=== PATIENT | male | born 1995 | race Native Hawaiian/Other Pacific Islander ===

== ENCOUNTER 2017-03-08 05:20 | Emergency (ER) | payer OTHER ==
[~2017-03-08] VITALS: Ht 190.5 cm; Wt 63.5 kg
[2017-03-08 05:47] VITALS: BP 150/90; TEMP 98
== END 2017-03-08 05:49 | disposition home or self-care (01) ==
LOC: ED 05:20
DX: H16.133 Photokeratitis, bilateral (principal); W89.8XXA Exposure to other man-made visible and ultraviolet light, initial encounter
CPT/HCPCS: 99283

== ENCOUNTER 2017-05-18 20:29 | Emergency (ER) | payer OTHER ==
[~2017-05-18] VITALS: Ht 190.5 cm; Wt 65.8 kg
[2017-05-18 23:20] VITALS: BP 128/81; TEMP 100.4
== END 2017-05-18 23:21 | disposition home or self-care (01) ==
LOC: ED 20:29
DX: M54.42 Lumbago with sciatica, left side (principal); M54.41 Lumbago with sciatica, right side
CPT/HCPCS: 99283